=== PATIENT | male | born 1955 | race Caucasian/White ===

== ENCOUNTER 2018-04-23 20:05 | Emergency (ER) | payer BC ==
[2018-04-23] MEDS ORDERED: Acetaminophen/oxyCODONE 325-5 MG Tab PO ONE (20:06)
[2018-04-23] MEDS ORDERED: Albuterol/Ipratropium 3.0-0.5 MG/3 ML Neb Soln NEB ONE (21:45)
[2018-04-23] MEDS ORDERED: predniSONE 20 MG Tab PO ONE (22:13)
--- NOTE | 2018-04-24 07:50 | EDM.PDOC ---
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 He has been more short of breath since yesterday. He has had influenza shots a pneumococcal shots. 2 years ago had coronary stents placed. He denies anterior chest pain, palpitations, atrial fibrillation, diaphoresis, neck pain, jaw pain or arm pain but is most concerned about the left lateral posterior chest wall pain left side mid back Pain Score (Numeric/FACES): 7 - Related Data Allergies Allergy/AdvReac Type Severity Reaction Status Date / Time No Known Allergies Allergy Verified 04/23/18 20:30 Home Meds: Home Meds Albuterol Sulfate [Albuterol Sulfate Hfa] 8.5 gm IH ASDIRECTED 04/23/18 [History ] Past Medical History Respiratory History: Reports: COPD Social & Family History - Family History Family Medical History: Noncontributory - Tobacco Use Smoking Status *Q: Former Smoker Used Tobacco, but Quit: Yes Month/Year Tobacco Last Used: 84 - Caffeine Use Caffeine Use: Reports: Coffee - Alcohol Use Days Per Week of Alcohol Use: 1 Number of Drinks Per Day: 2 Total Drinks Per Week: 2 - Recreational Drug Use Recreational Drug Use: No ED ROS GENERAL - Review of Systems Review Of Systems: ROS reveals no pertinent complaints other than HPI. ED EXAM, GENERAL - Physical Exam Exam: See Below Free Text/Narrative:: Overweight mildly short of breath (on 3 liters O2 which was gradually turned down to 1 L and then discontinued as his oxygen saturation improved) tall man who looks older than his age with increased barrel chest and even greater increased in abdominal girth with moderate left rhomboid and left chest pain (medial to the medial border of the left scapula). Exam Limited By: No Limitations General Appearance: Alert, Moderate Distress Eye Exam: Bilateral Eye: Normal Inspection Ears: Normal External Exam, Normal Canal, Normal TMs, Hearing Loss, Other ( Hearing aids) Ear Exam: Bilateral Ear: Auricle Normal Nose: Normal Inspection Throat/Mouth: Normal Inspection, Normal Lips, Normal Teeth, Normal Gums, Normal Oropharynx, Normal Voice Head: Atraumatic, Normocephalic Neck: Normal Inspection, Supple, Non-Tender, Other (No bruits; moderate tracheal tug no tracheal deviation) Respiratory/Chest: No Respiratory Distress, Rales, Other (Scattered occasional rales in lungs, mild accessory muscle use, no ferrous cyanosis, decreased air exchange in lungs) Cardiovascular: Normal Peripheral Pulses Peripheral Pulses: 1+: Dorsalis Pedis (L), Dorsalis Pedis (R), 2+: Carotid (L) ( No bruits), Carotid (R), Radial (L), Radial (R) GI/Abdominal: Normal Bowel Sounds, Soft, Non-Tender, No Organomegaly, No Distention, No Abnormal Bruit, No Mass, Other (No bruits abdominal pain, but marked increased abdominal girth) (Male) Exam: No Hernia, Normal Inspection, Other (Moderate testicular atrophy ) Back Exam: Normal Inspection, Other (Marked tenderness left medial upper and lower rhomboids mild trapezial discomfort and no crepitance or step-off Valadez on palpation no spinous processes tenderness thoracic lumbar spine paraspinal muscle spasm thoracic lumbar spine) Extremities: Normal Inspection, Normal Range of Motion, Non-Tender, No Pedal Edema, Normal Capillary Refill Neurological: Alert, Oriented, CN II-XII Intact, Normal Cognition, Normal Gait, Normal Reflexes, No Motor/Sensory Deficits Psychiatric: Normal Affect EKG INTERPRETATION Rhythm: NSR [place]: Normal P-Wave: Present QRS: Other (Low Voltage) ST-T: Normal QT: Normal EKG Interpretation Comments: ST elevation no Q-wave abnormality facial PVC moderately low-voltage (no evidence for hypothyroidism on laboratory testing) Course - Vital Signs Last Recorded V/S: Last Vital Signs Temp 36.5 C 04/23/18 23:20 Pulse 91 04/23/18 23:20 Resp 24 H 04/23/18 23:20 BP 136/92 H 04/23/18 23:20 Pulse Ox 97 04/23/18 23:20 - Orders/Labs/Meds Orders: Active Orders 24 hr Category Date Time Status EKG Documentation Completion [RC] ASDIRECTED Care 04/23/18 21:11 Active EKG Documentation Completion [RC] ASDIRECTED Care 04/23/18 21:11 Active RT Aerosol Therapy [RC] ASDIRECTED Care 04/23/18 21:45 Active CXR [Chest 2V] [CR] Stat Exams 04/23/18 21:08 Taken EKG 12 Lead [EK] Routine Ther 04/23/18 21:11 Ordered Labs: Laboratory Tests 04/23/18 04/23/18 04/23/18 Range/Units 21:30 21:30 21:30 WBC 9.9 (4.5-12.0) X10-3/uL RBC 5.24 (4.30-5.75) x10(6)uL Hgb 15.1 (13.5-17.8) g/dL Hct 44.3 (30.0-51.3) % MCV 84.5 (80-96) fL MCH 28.9 (27.7-33.6) pg MCHC 34.2 (32.2-35.4) g/dL RDW 12.1 (11.5-15.5) % Plt Count 198 (125-369) X10(3)uL MPV 9.5 (7.4-10.4) fL Neut % (Auto) 74.6 (46-82) % Lymph % (Auto) 18.1 (13-37) % [place] % (Auto) 5.6 (4-12) % Eos % (Auto) 1 (1.0-5.0) % Baso % (Auto) 0 (0-2) % Neut # (Auto) 7.4 (1.6-8.3) # Lymph # (Auto) 1.8 (0.6-5.0) # [place] # (Auto) 0.6 (0.0-1.3) # Eos # (Auto) 0.1 (0.0-0.8) # Baso # (Auto) 0.0 (0.0-0.2) # D-Dimer, Quantitative (0.0-0.59) mg/LFEU Sodium 141 (135-145) mmol/L Potassium 3.9 (3.5-5.3) mmol/L Chloride 102 (100-110) mmol/L Carbon Dioxide 29 (21-32) mmol/L BUN 13 (7-18) mg/dL Creatinine 1.0 (0.70-1.30) mg/dL Est Cr Clr Drug Dosing 81.58 mL/min Estimated GFR (MDRD) > 60 (>60) BUN/Creatinine Ratio 13.0 (9-20) Glucose 84 (80-116) mg/dL Calcium 8.8 (8.6-10.2) mg/dL Total Bilirubin 0.7 (0.1-1.3) mg/dL AST < 5 L (5-25) IU/L ALT < 6 L (12-36) U/L Alkaline Phosphatase < 10 L (56-112) IU/L Troponin I < 0.017 L (<0.017-0.056) ng/mL Total Protein 6.5 (6.0-8.0) g/dL Albumin 2.5 L (3.2-4.6) g/dL Globulin 4.0 g/dL Albumin/Globulin Ratio 0.6 TSH, Ultra Sensitive (0.36-3.74) IU/mL 04/23/18 04/23/18 Range/Units 21:30 21:30 WBC (4.5-12.0) X10-3/uL RBC (4.30-5.75) x10(6)uL Hgb (13.5-17.8) g/dL Hct (30.0-51.3) % MCV (80-96) fL MCH (27.7-33.6) pg MCHC (32.2-35.4) g/dL RDW (11.5-15.5) % Plt Count (125-369) X10(3)uL MPV (7.4-10.4) fL Neut % (Auto) (46-82) % Lymph % (Auto) (13-37) % [place] % (Auto) (4-12) % Eos % (Auto) (1.0-5.0) % Baso % (Auto) (0-2) % Neut # (Auto) (1.6-8.3) # Lymph # (Auto) (0.6-5.0) # [place] # (Auto) (0.0-1.3) # Eos # (Auto) (0.0-0.8) # Baso # (Auto) (0.0-0.2) # D-Dimer, Quantitative 0.42 (0.0-0.59) mg/LFEU Sodium (135-145) mmol/L Potassium (3.5-5.3) mmol/L Chloride (100-110) mmol/L Carbon Dioxide (21-32) mmol/L BUN (7-18) mg/dL Creatinine (0.70-1.30) mg/dL Est Cr Clr Drug Dosing mL/min Estimated GFR (MDRD) (>60) BUN/Creatinine Ratio (9-20) Glucose (80-116) mg/dL Calcium (8.6-10.2) mg/dL Total Bilirubin (0.1-1.3) mg/dL AST (5-25) IU/L ALT (12-36) U/L Alkaline Phosphatase (56-112) IU/L Troponin I (<0.017-0.056) ng/mL Total Protein (6.0-8.0) g/dL Albumin (3.2-4.6) g/dL Globulin g/dL Albumin/Globulin Ratio TSH, Ultra Sensitive 3.70 (0.36-3.74) IU/mL Meds: Medications Discontinued Medications Generic Name Dose Route Start Last Admin Trade Name Freq PRN Reason Stop Dose Admin Albuterol/Ipratropium 3 ml 04/23/18 21:45 04/23/18 21:59 Duoneb 3.0-0.5 Mg/3 Ml NEB 04/23/18 21:46 3 ml ONETIME ONE Administration Prednisone 40 mg 04/23/18 22:13 04/23/18 22:30 Prednisone PO 04/23/18 22:14 40 mg ONETIME ONE Administration Departure - Departure Time of Disposition: 00:30 (Since ermgernt OD preempted earler dismissal. patient had to wait longer than desired. He was okay with this process. Patient has COPD with exacerbation secondary to muscle splinting from fall onn ice induced muscle spasm muscle strain left rhomboids trapezial muscles. No suggestion of pneumothorax. Chest x-ray has moderate emphysema changes COPD with flattening diaphragms and increased lucency without pneumatoceles or pneumothorax. No rib fractures. No myocardial ischemia. Normal sinus EKG without Q waves or ST elevation. EKG low voltage was suggestive of hypothyroidism but patient did not have an abnormal TSH. Patient was dismissed with pain medicines. in 1 week, earlier if worse and advised he would have pain in his chest for some time, may take up to several weeks before it resolves.) Disposition: Home, Self-Care 01 Condition: Good Clinical Impression: Smoker, Social isolation Chest wall contusion Qualifiers: Encounter type: initial encounter Laterality: left Qualified Code(s): S20.212A - Contusion of left front wall of thorax, initial encounter Thoracic back pain Qualifiers: Chronicity: acute Back pain laterality: left Qualified Code(s): M54.6 - Pain in thoracic spine COPD (chronic obstructive pulmonary disease) Qualifiers: COPD type: emphysema Emphysema type: unspecified Qualified Code(s): J43.9 - Emphysema, unspecified - Discharge Information *PRESCRIPTION DRUG MONITORING PROGRAM REVIEWED*: Not Applicable *COPY OF PRESCRIPTION DRUG MONITORING REPORT IN PATIENT BLESSING: Not Applicable Instructions: Chest Contusion, Adult Referrals: PCP,Not In Area [Primary Care Provider] - Forms: ED Department Discharge Additional Instructions: Is no suggestion of any infection in your lungs. You have chronic obstructive lung disease. The pain you're experiencing in your chest is from muscle strain from the fall on the ice. Use 1000 mg Tylenol ends 600 mg ibuprofen together every 6 hours for pain You have been given pain medicine percocet ,to decrease your pain. Use percocet for breakthrough pain not relieved by Tylenol and ibuprofen. 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 - My Orders Last 24 Hours: My Active Orders 04/23/18 21:08 CXR [Chest 2V] [CR] Stat 04/23/18 21:11 EKG Documentation Completion [RC] ASDIRECTED EKG Documentation Completion [RC] ASDIRECTED EKG 12 Lead [EK] Routine 04/23/18 21:45 RT Aerosol Therapy [RC] ASDIRECTED - Assessment/Plan Last 24 Hours: My Active Orders 04/23/18 21:08 CXR [Chest 2V] [CR] Stat 04/23/18 21:11 EKG Documentation Completion [RC] ASDIRECTED EKG Documentation Completion [RC] ASDIRECTED EKG 12 Lead [EK] Routine 04/23/18 21:45 RT Aerosol Therapy [RC] ASDIRECTED
--- NOTE | 2018-04-24 11:42 | CR ---
INDICATION: Fell on ice; pain rhomboids, left posterior chest. CHEST: Two PA views and a lateral view of the chest were obtained, 04/23/18 - no comparisons. There is a slightly oblique fracture through the anterolateral aspect of the 5th left rib with some overlying pleural reaction, likely a small hematoma in that area. Only very minimal offset is noted at the fracture site. The 6th left rib is bifid from the anterolateral portion anteriorly. No underlying contusion, infiltrate, effusion, or pneumothorax was identified. Heart and mediastinum were unremarkable. Somewhat flattened diaphragm leaves, prominent AP diameter, and hyperaeration suggest COPD. IMPRESSION: 1. Rib fracture #5 on the left anterolaterally with minimal adjacent pleural reaction. No additional complicating process. 2. COPD. Report was called to Dr. Cuenca at 1018 hours on 04/24/18. [facility]
== END 2018-04-23 23:21 | disposition home or self-care (01) ==
LOC: FB.ED 20:05
DX: S22.32XA Fracture of one rib, left side, initial encounter for closed fracture (principal); S20.212A Contusion of left front wall of thorax, initial encounter; J43.9 Emphysema, unspecified; M54.6 Pain in thoracic spine; Z87.891 Personal history of nicotine dependence; W19.XXXA Unspecified fall, initial encounter
CPT/HCPCS: 36415; 71046; 80053; 84443; 84484; 85025; 85379; 93005; 94640; 99285-25; A9270-GY; J7620-GY